=== PATIENT | female | born 1935 | race Caucasian/White ===

== ENCOUNTER 2019-09-15 08:17 | Outpatient (CLI) | payer MEDICARE, OTHER ==
[2019-09-15 16:21] LABS: #Basophils 0.1 thou/uL (0.0-0.2); #Eosinphils 0.7 thou/uL (0.0-0.7); #Lymphocytes 1.7 thou/uL (1.20-3.40); #Monocytes 0.8 thou/uL (0.11-0.59); #Neutrophils 6.2 thou/uL (1.40-6.50); %Basophils 0.6 % (0.0-1.0); %Eosinophils 7.9 % (0.0-10.0); %Lymphocytes 17.7 % (21.0-51.0); %Monocytes 8.2 % (0.0-10.0); %Neutrophils 65.6 % (42.0-75.0); Hemoglobin 12.8 g/dL (12.0-16.0); Mean Corpuscular HGB CONC 32.2 g/dL (32.0-36.0); Mean Corpuscular Hemoglobin 31.2 pg (27.0-31.0); Mean Corpuscular Volume 97.2 fL (78.0-98.0); Mean Platelet Volume 8.1 fL (7.4-10.4); Platelet Count 193 thou/uL (130-400); RBC Distribution Width 13.8 % (11.5-14.5); White Blood Cell (WBC) Count 9.4 thou/uL (4.8-10.8)
[2019-09-15 16:47] LABS: Anion Gap 12 mmol/L (10-20); BUN (Urea Nitrogen) 27 mg/dL (9.8-20.1); Calc. Creatinine Clearance 0 mL/min (70-130); Calcium 8.5 mg/dL (7.8-10.44); Carbon Dioxide 24 mmol/L (23-31); Chloride 105 mmol/L (98-107); Estimated GFR-MDRD 50; Glucose 102 mg/dL (83-110); Potassium 4.3 mmol/L (3.5-5.1); Sodium 137 mmol/L (136-145)
[2019-09-16 14:15] LABS: SARS-CoV-2 MS2 Positive; SARS-CoV-2 N Gene Negative; SARS-CoV-2 S Gene Negative; SARS-CoV-2 by NAA Not Detected (NotDetected); SARS-CoV-2 orf1ab Negative
--- NOTE | 2019-09-16 15:45 | EKG ---
Test Reason : Blood Pressure : / mmHG Vent. Rate : 063 BPM Atrial Rate : 063 BPM P-R Int : 000 ms QRS Dur : 126 ms QT Int : 450 ms P-R-T Axes : 000 -11 146 degrees QTc Int : 460 ms Sinus rhythm with 1st degree A-V block Non-specific intra-ventricular conduction delay Moderate voltage criteria for LVH, may be normal variant Cannot rule out Septal infarct , age undetermined Abnormal ECG Confirmed by LAYLA SOTO ([id number]) on 09/16/2019 3:45:14 PM Referred By: CARINA Confirmed By:LAYLA SOTO
== END 2019-09-15 08:18 | disposition home or self-care (01) ==
LOC: LABBT 08:17
PROVIDERS: ATTEND Orthopaedic Surgery
DX: Z01.818 Encounter for other preprocedural examination (principal); Z11.59 Encounter for screening for other viral diseases; M19.012 Primary osteoarthritis, left shoulder
CPT/HCPCS: 80048; 85025; 93005; U0003; 87635; 93010

== ENCOUNTER 2019-09-15 13:30 | Inpatient (IN) | payer MEDICARE, OTHER ==
[2019-09-15 12:07] VITALS: BMI 29.2
[2019-09-18] MEDS ORDERED: Tranexamic Acid 1,000 MG/10 ML VIAL ONE (06:30)
[2019-09-18] MEDS ORDERED: Sodium Chloride 0.9% 100 ML ONE (06:30)
[2019-09-18] MEDS ORDERED: Vancomycin 1 GM/200 ML BAG ONE (06:30)
[2019-09-18] MEDS ORDERED: Fentanyl 100 MCG/2 ML VIAL ONE (06:55)
[2019-09-18] MEDS ORDERED: Lidocaine 1% (PF) 30 ML VIAL ONE (06:55)
[2019-09-18] MEDS ORDERED: Midazolam HCl 2 mg/2 ml Vial ONE (06:55)
[2019-09-18] MEDS ORDERED: traMADol HCl 50 MG TAB PO PRN ×4 (07:04→08:10)
[2019-09-18] MEDS ORDERED: HYDROcodone/Acetaminophen 7.5/325 mg Tablet PO PRN (07:06)
[2019-09-18] MEDS ORDERED: Acetaminophen/Codeine 30-300mg Tablet PO PRN (07:06)
[2019-09-18] MEDS ORDERED: Acetaminophen 325 MG TAB PO PRN (08:10)
[2019-09-18] MEDS ORDERED: HYDROcodone/Acetaminophen 10/325 mg Tablet PO PRN ×2 (08:10)
[2019-09-18] MEDS ORDERED: Ropivacaine 0.2% 550 ML 550 ML NERVE BLCK SCH (08:10)
[2019-09-18] MEDS ORDERED: Ketorolac Tromethamine 30 MG/ML VIAL IVP PRN (08:10)
[2019-09-18] MEDS ORDERED: Ondansetron PF 4 MG/2 ML Vial IVP PRN (08:10)
[2019-09-18] MEDS ORDERED: Promethazine HCl 25 MG/ML VIAL IM PRN (08:10)
[2019-09-18] MEDS ORDERED: Zolpidem Tartrate 5 MG TAB PO PRN (08:10)
[2019-09-18] MEDS ORDERED: Fentanyl 100 MCG/2 ML VIAL IV PRN (08:12)
[2019-09-18] MEDS ORDERED: Bacitracin 1 PK ONE (09:51)
[2019-09-18] MEDS ORDERED: Ropivacaine 0.2% HCl/PF (40 MG/20 ML VIAL) ONE (10:30)
[2019-09-18] MEDS ORDERED: Lidocaine 1% PF 5 ML VIAL ONE (10:30)
[2019-09-18] MEDS ORDERED: Rocuronium Bromide 10 MG/ML (10ML VIAL) ONE (10:30)
[2019-09-18] MEDS ORDERED: Glycopyrrolate 0.2 MG/ML 5 ML SYRINGE ONE (10:30)
[2019-09-18] MEDS ORDERED: Ropivacaine 0.5% HCl/PF (150 MG/30 ML VIAL) ONE (10:30)
[2019-09-18] MEDS ORDERED: EPHEDRINE 25 MG/5 ML SYRINGE ONE (10:30)
[2019-09-18] MEDS ORDERED: PHENYLEPHRINE-NS 100 MCG/ML 10 ML SYRINGE ONE (10:30)
[2019-09-18] MEDS ORDERED: Dexamethasone 20 MG/5 ML VIAL ONE (10:30)
[2019-09-18] MEDS ORDERED: PROPOFOL 200 MG/20 ML VIAL ONE (10:30)
--- NOTE | 2019-09-18 11:46 | OP ---
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 PROCEDURE PERFORMED: Left reverse total shoulder arthroplasty. LAW ENFORCEMENT INSTRUCTOR: Jaelyn Leal PA-C ANESTHESIA: General via endotracheal tube, augmented with indwelling interscalene peripheral nerve block. COMPONENTS USED: Tornier Aequalis Reversed glenoid base, neutral offset size 29, with a 29-mm neutral offset, 36-mm Glenosphere. Size 3B standard humeral stem with a neutral offset reverse tray, and a 36-mm, 12.5 mm Reversed humeral insert. FINDINGS: End-stage severe degenerative bicompartmental disease, [id number] arthrosis, periarticular osteophyte formation, large serous effusion, hypertrophic synovium, absence and chronic attenuated supraspinatus and infraspinatus tendons. DRAINS: None. SPECIMENS: None. COMPLICATIONS: None. COUNTS: Correct. INDICATIONS FOR SURGERY: Joselito is an 83-year-old female who has had progressive left shoulder pain and problem with overhead lifting and use. She has had long-standing rotator cuff arthropathy and has failed conservative management to alleviate her pain. MRI and plain radiographs had been obtained. PROCEDURE IN DETAIL: After informed consent was obtained in the preoperative holding area, the patient was taken to the operative suite and received preoperative antibiotics. General anesthesia was induced. Once adequate level of anesthesia was obtained, airway was placed and secured. The patient was then positioned appropriately and the operative extremity was prepped and draped in the usual sterile fashion. Prior to incision, a multidisciplinary time-out was called and performed. A standard deltopectoral approach was used, extending from the tip of the coracoid, traveling inferiorly approximately 3 to 6 fingerbreadths and anterior. Subcutaneous layers were divided with Bovie electrocautery. Local bleeding was controlled. The cephalic vein was then encountered and identified and retracted. It was protected for the rest of the case. Andrews retractors were then used to expose the submuscular layer of the deltoid down to the insertion of the pectoralis and this was recessed slightly. Deeper blunt dissection revealed the conjoined tendon, which ran vertically from the tip of the coracoid inferiorly. A submuscular dissection was carried out onto the conjoined tendon, exposing the anterior aspect of the glenohumeral capsule and subscapularis muscular insertion on the humeral head. Careful dissection of the subscapularis originating from the biceps groove and moving medially, we used Bovie electrocautery to peel back the subscapularis tendon meticulously. The biceps tendon was not found in the groove and was no longer present. We placed 3 provisional Ethibond #2 stitches for retraction. The subcapsular joint was then exposed and we reflected the subscapularis tendon inferiorly around the inferior aspect of the humeral head with external rotation, revealing osteophytes and the interval of the neck and head. Blunt retractors were placed both anteriorly and posteriorly and the oscillating saw was then brought in by the payroll human resources assistant to make the provisional neck cut in situ. After removal of this, the humeral neck was then placed back in anatomic position, retracted inferiorly and attention was turned to glenoid preparation. Series of Bankart retractor was placed superiorly to expose the superior aspect of the glenoid and blunt Hohmann's were used to expose the posterior side and inferior aspect. A full circumferential glenoid labrectomy was performed, allowing for full release circumferentially of the humerus from the glenoid, allowing for inferioralization and then placement of the Darrach tractor, which remained throughout the preparation of the glenoid. The sizing guide was placed. Center hole was drilled just inferior to the center of the glenoid. We found good bone with sounding after overdrilling sequentially. The glenoid reamer was then placed to remove the appropriate amount of bone. This was irrigated copiously, finding good subchondral bone for placement of the glenoid base, which was malleted into place. Two nonlocking superior and inferior bone screws were placed as well as 2 locking anterior and posterior screws were placed in the Glenosphere for good solid fixation. The Glenosphere was then brought into the field, placed on the baseplate malleted and then screwed into place for good solid fixation. It was not loose. Attention was then turned to humeral preparation. Humerus was externally rotated and superioralized out of the incision and Hohmann retractors were placed both medially and posteriorly to protect the remnant of subscapularis and supraspinatus tendons. The rotationally guided canal finder was dropped, malleted into place, and left with 30 degrees of internal rotation. This was guided from above by the payroll human resources assistant and malleted and placed by the payroll human resources assistant. The osteotome was then used to remove the calcar bone. It was taken out by the payroll human resources assistant with a rongeur. The rotational guide was removed and sequential broaching was performed by the payroll human resources assistant up to the appropriate size. Once we reached the maximum impaction without subluxation and rotational stability, we chose to go ahead and trial at this time. Trial baseplate was dialed in superiorly and locked and we performed several trials for insert size, taking the shoulder through full range of motion, internal and external rotation, and checking for Shuck and subluxation. After deciding clinically on the appropriate size, the humeral trials were removed and the directly correlating permanent implant was then malleted into place. The fixed bearing polyethylene insert was then malleted into place. Reduction maneuver was performed and the shoulder was again taken through flexion and extension, internal and external rotation, and all planes of motion. No subluxation, lift off, or excessive Shuck was noted. No dislocation was encountered at this time. Happy with the fit, finish, and clinical range of motion. The entire wound was copiously irrigated with normal saline. The payroll human resources assistant then performed primary closure of the subscapularis tendon with combination of #2 Ethibond stitches through transosseous fixation. This was oversewn with a #2 Vicryl with good closure. Deep primary closure was accomplished with the deltoid split with 0 Vicryl in an interrupted single simple stitch fashion. Subcutaneous layer was closed with 2-0 Vicryl and stainless steel cyndie were used to reapproximate the skin. A small sterile dressing was applied and the procedure was terminated without any complications. The airway was removed. The patient was awakened in the operative suite and taken to recovery room in stable condition. Job ID: [id number]
[2019-09-18] MEDS: CEFAZOLIN 2 GM in Premix Bag 1 BAG IVPB SCH ×2 (16:50→21:25)
[2019-09-18] MEDS: Midodrine HCl 5 MG TAB PO SCH ×2 (16:57→20:39)
[2019-09-18] MEDS: Propafenone HCl 150 MG TAB PO SCH ×2 (16:57→20:38)
[2019-09-18] MEDS: Sodium Chloride 0.9% 1,000 ML IV SCH (16:58)
[2019-09-18] MEDS: Aspirin 81 mg Enteric Coated Tablet PO SCH (16:58)
[2019-09-18] MEDS: Famotidine 20 MG TAB PO SCH (16:58)
[2019-09-18] MEDS: Gabapentin 300 MG CAP PO SCH (16:58)
[2019-09-18] MEDS ORDERED: Atorvastatin Calcium 10 MG TAB PO SCH (21:00)
[2019-09-19] MEDS: Sodium Chloride 0.9% 1,000 ML IV SCH (05:59)
[2019-09-19] MEDS: Propafenone HCl 150 MG TAB PO SCH (07:50)
[2019-09-19] MEDS: Aspirin 81 mg Enteric Coated Tablet PO SCH (07:53)
[2019-09-19] MEDS: Midodrine HCl 5 MG TAB PO SCH (07:53)
[2019-09-19] MEDS: Gabapentin 300 MG CAP PO SCH (07:53)
[2019-09-19] MEDS: Famotidine 20 MG TAB PO SCH (07:53)
[2019-09-19 08:28] VITALS: BP 191/90; TEMP 98.1
--- NOTE | 2019-09-19 11:58 | OP ---
DATE OF PROCEDURE: 09/18/2019 PREOPERATIVE DIAGNOSIS: Degenerative arthritis in the left shoulder with rotator cuff insufficiency. POSTOPERATIVE DIAGNOSIS: Degenerative arthritis in the left shoulder with rotator cuff insufficiency. PROCEDURE PERFORMED: Left reverse total shoulder arthroplasty using a [employer] 29-mm baseplate with 36-mm centered sphere, 3B Flex stem, low offset tray, and a +6 poly. CREDIT OR LOANS OFFICER: Jealyn Leal PA-C BLOOD LOSS: About 100. SPECIMEN: None. DRAINS: None. COMPLICATIONS: She did have a little skin tearing on her lower arm, just from holding the arm. Skin is very thin like onion skin. This was replaced and a dressing was placed on it. NARRATIVE REPORT: After appropriate consent was obtained, the patient was taken to the operating room, where general anesthetic was induced. The patient received preoperative antibiotics according to SCIP protocol, placed in a beach chair position. The deltopectoral approach was made. Dissection was carried down to the subscapularis tendon, which was tagged for later repair. There was no functioning rotator cuff. The humeral head was dislocated and cut using a cutting guide, prepared to appropriate stem size. A metaphyseal protector was applied. The glenoid was then exposed circumferentially, removed remains of the biceps tendon. The labrum tissue identified in the center of the glenoid. I drilled the center police pilot hole and then reamed the glenoid to a flat surface, using a one-step reamer to create a trough for the Glenosphere. Appropriate base plate was then inserted with a good press-fit technique and screws were inserted with excellent security of the base plate to bone. When it appears deployed the screw was tightened without difficulty. Trials were performed. The appropriate metaphysis and polyethylene liner chosen. Shoulder was reduced, we confirmed stability. Trials removed, irrigation performed. I drilled two holes through the metaphysis of the proximal humerus, placed cottony Dacron through these holes. The suture went around the actual implant to give extra stability. Implant was impacted into place. Shoulder was reduced. Subscapularis was repaired back to bone using 1 mm cottony Dacron tape. Irrigation was performed. Deltopectoral interval was closed with 0 Vicryl, subcu 2-0 Vicryl and skin was closed with cyndie. Sterile dressings applied. Job ID: [id number]
== END 2019-09-19 12:18 | disposition home or self-care (01) | DRG 483 ==
LOC: SURG A 09-18 06:17 → SJJU 09-18 10:51
PROVIDERS: ADMIT Orthopaedic Surgery; ATTEND Orthopaedic Surgery
PROC: 0RRK00Z Replacement of Left Shoulder Joint with Reverse Ball and Socket Synthetic Substitute, Open Approach (ICD-10-PCS; principal; 2019-09-18)
DX: M19.012 Primary osteoarthritis, left shoulder (principal); M75.102 Unspecified rotator cuff tear or rupture of left shoulder, not specified as traumatic; M25.412 Effusion, left shoulder; Z96.653 Presence of artificial knee joint, bilateral; Z90.49 Acquired absence of other specified parts of digestive tract; Z90.710 Acquired absence of both cervix and uterus
CPT/HCPCS: 80048; 85025; 87635; 93005; A4306; C1713; C1776; J0690; J1100; J2001; J2250; J2704; J2795; J3010; J3370; J3490; U0003

== ENCOUNTER 2019-11-10 07:47 | Outpatient (CLI) | payer MEDICARE, OTHER ==
[2019-11-10 14:32] LABS: #Basophils 0.1 thou/uL (0.0-0.2); #Eosinphils 0.8 thou/uL (0.0-0.7); #Lymphocytes 1.7 thou/uL (1.20-3.40); #Monocytes 0.8 thou/uL (0.11-0.59); #Neutrophils 6.4 thou/uL (1.40-6.50); %Basophils 0.7 % (0.0-1.0); %Eosinophils 8.7 % (0.0-10.0); %Lymphocytes 17.5 % (21.0-51.0); %Monocytes 7.8 % (0.0-10.0); %Neutrophils 65.4 % (42.0-75.0); Hemoglobin 13.6 g/dL (12.0-16.0); Mean Corpuscular HGB CONC 31.1 g/dL (32.0-36.0); Mean Corpuscular Hemoglobin 30.5 pg (27.0-31.0); Mean Corpuscular Volume 98.1 fL (78.0-98.0); Mean Platelet Volume 7.8 fL (7.4-10.4); Platelet Count 281 thou/uL (130-400); RBC Distribution Width 13.5 % (11.5-14.5); Red Blood Cell (RBC) Count 4.47 mill/uL (4.20-5.40); White Blood Cell (WBC) Count 9.8 thou/uL (4.8-10.8)
[2019-11-10 15:00] LABS: Anion Gap 14 mmol/L (10-20); BUN (Urea Nitrogen) 18 mg/dL (9.8-20.1); Calc. Creatinine Clearance 0 mL/min (70-130); Calcium 8.9 mg/dL (7.8-10.44); Carbon Dioxide 26 mmol/L (23-31); Chloride 106 mmol/L (98-107); Estimated GFR-MDRD 43; Glucose 108 mg/dL (83-110); Potassium 4.4 mmol/L (3.5-5.1); Sodium 142 mmol/L (136-145)
[2019-11-11 14:55] LABS: SARS-CoV-2 MS2 Positive; SARS-CoV-2 N Gene Negative; SARS-CoV-2 S Gene Negative; SARS-CoV-2 by NAA Not Detected (NotDetected); SARS-CoV-2 orf1ab Negative
== END 2019-11-10 07:48 | disposition home or self-care (01) ==
LOC: LABBT 07:47
PROVIDERS: ATTEND Orthopaedic Surgery
DX: Z01.812 Encounter for preprocedural laboratory examination (principal); Z20.828 Contact with and (suspected) exposure to other viral communicable diseases; M19.011 Primary osteoarthritis, right shoulder
CPT/HCPCS: 80048; 85025; U0003; 87635

== ENCOUNTER 2019-11-10 11:15 | Inpatient (IN) | payer MEDICARE, OTHER ==
[2019-11-11 15:54] VITALS: BMI 28.3
[2019-11-13] MEDS ORDERED: Sodium Chloride 0.9% 100 ML ONE (06:42)
[2019-11-13] MEDS ORDERED: Tranexamic Acid 1,000 MG/10 ML VIAL ONE (06:42)
[2019-11-13] MEDS ORDERED: Vancomycin 1 GM/200 ML BAG ONE (06:42)
[2019-11-13] MEDS ORDERED: Midazolam HCl 2 mg/2 ml Vial ONE (06:44)
[2019-11-13] MEDS ORDERED: Fentanyl 100 MCG/2 ML VIAL ONE (06:44)
[2019-11-13] MEDS ORDERED: traMADol HCl 50 MG TAB PO PRN ×4 (07:12→07:30)
[2019-11-13] MEDS ORDERED: Acetaminophen/Codeine 30-300mg Tablet PO PRN (07:15)
[2019-11-13] MEDS ORDERED: Fentanyl 100 MCG/2 ML VIAL SLOW IVP PRN (07:21)
[2019-11-13] MEDS ORDERED: Promethazine HCl 25 MG/ML VIAL IM PRN (07:30)
[2019-11-13] MEDS ORDERED: HYDROcodone/Acetaminophen 5/325 mg Tablet PO PRN ×2 (07:30)
[2019-11-13] MEDS ORDERED: Zolpidem Tartrate 5 MG TAB PO PRN (07:30)
[2019-11-13] MEDS ORDERED: Ondansetron PF 4 MG/2 ML Vial IVP PRN (07:30)
[2019-11-13] MEDS ORDERED: Ropivacaine 0.2% 550 ML 550 ML NERVE BLCK SCH (07:30)
[2019-11-13] MEDS ORDERED: Aspirin 81 mg Enteric Coated Tablet PO SCH ×2 (09:00→21:00)
[2019-11-13] MEDS ORDERED: PROPAFENONE 225 MG PO SCH (09:00)
[2019-11-13] MEDS ORDERED: SUGAMMADEX SODIUM 200 MG/2 ML VIAL ONE (09:22)
[2019-11-13] MEDS ORDERED: Ondansetron HCl/PF 4 MG/2 ML Vial IVP PRN (09:32)
[2019-11-13] MEDS ORDERED: Glycopyrrolate 0.2 MG/ML 5 ML SYRINGE ONE (09:57)
[2019-11-13] MEDS ORDERED: Dexamethasone 20 MG/5 ML VIAL ONE (09:57)
[2019-11-13] MEDS ORDERED: PROPOFOL 200 MG/20 ML VIAL ONE (09:57)
[2019-11-13] MEDS ORDERED: Lidocaine 1% PF 5 ML VIAL ONE (09:57)
[2019-11-13] MEDS ORDERED: EPHEDRINE 25 MG/5 ML SYRINGE ONE (09:57)
[2019-11-13] MEDS ORDERED: Ropivacaine 0.2% HCl/PF (40 MG/20 ML VIAL) ONE (09:57)
[2019-11-13] MEDS ORDERED: Ondansetron PF 4 MG/2 ML Vial ONE (09:57)
[2019-11-13] MEDS ORDERED: Rocuronium Bromide 10 MG/ML (10ML VIAL) ONE (09:57)
[2019-11-13] MEDS ORDERED: Ketorolac Tromethamine 30 MG/ML VIAL ONE (09:57)
[2019-11-13] MEDS ORDERED: Ropivacaine 0.5% HCl/PF (150 MG/30 ML VIAL) ONE (09:57)
[2019-11-13] MEDS ORDERED: PHENYLEPHRINE-NS 100 MCG/ML 10 ML SYRINGE ONE (09:57)
[2019-11-13] MEDS: Midodrine HCl 5 MG TAB PO SCH ×2 (15:44→21:30)
[2019-11-13] MEDS: CEFAZOLIN 2 GM in Premix Bag 1 BAG IVPB SCH ×2 (15:47→23:28)
[2019-11-13] MEDS: Sodium Chloride 0.9% 1,000 ML IV SCH ×2 (15:47→23:29)
[2019-11-13] MEDS: Famotidine 20 MG TAB PO SCH (16:39)
[2019-11-13] MEDS ORDERED: Vancomycin 1 GM in Premix Bag 1 BAG IVPB SCH (20:00)
[2019-11-13] MEDS ORDERED: Atorvastatin Calcium 10 MG TAB PO SCH (21:00)
[2019-11-13] MEDS ORDERED: Gabapentin 300 MG CAP PO SCH (21:00)
--- NOTE | 2019-11-14 08:18 | OP ---
DATE OF PROCEDURE: 11/13/2019 PROCEDURE: Right reverse total shoulder arthroplasty and biceps tenodesis. PREOPERATIVE DIAGNOSIS: 1. Rotator cuff arthropathy, right shoulder. 2. Biceps tendinitis, right shoulder. POSTOPERATIVE DIAGNOSIS: 1. Rotator cuff arthropathy, right shoulder. 2. Biceps tendinitis, right shoulder. DIRECTOR MEDIA: Pedro Polk PA-C. IMPLANTS USED: Tornier 29-mm baseplate, 36 mm 10-degree tilted lateralized head, 3B stem, low offset tray, and 36 +6 poly. NARRATIVE REPORT: After appropriate consent was obtained, the patient was taken to the operating room where general anesthesia was induced. The patient was placed in a beach chair position. Right arm was prepped and draped in the usual sterile fashion. Oblique incision was made in the deltopectoral interval. Cephalic vein was identified and preserved. Dissection was carried down to the conjoint tendon which was retracted medially. The subscapularis was taken down. The biceps tendon was in poor condition. It was taken down off the superior glenoid tubercle and tenodesed to the pectoralis tendon. Excess tendon was removed. The shoulder was then easily dislocated. I opened the humerus with a T handle and then cut a 20 mm retroversion superior cut. The subscapularis had been previously tagged. I used a subscapularis to follow this down to the anterior glenoid and a Bankart retractor was placed anteriorly, and drill was placed posteriorly. I drilled a center hole in the glenoid and reamed with a 1-step reamer. Irrigation was performed. The base plate was deployed without difficulty. Screws were inserted in the usual technique with good compression and fixation. Glenosphere was deployed without difficulty and the screw was tightened. Attention was turned back to the humerus which was opened with a T handle, and after using the acetabular reamer, I then also used a metaphyseal reamer. The appropriate size stem was trialed and polyethylene was trialed until the implants were determined as above. I did drill holes through the humerus, and a cottony Dacron suture was placed around the prosthesis through bone to facilitate repair of the subscapularis. Irrigation was performed. Permanent implants were placed. Shoulder was reduced. The subscapularis was repaired back to bone using the cottony Dacron suture. Irrigation performed again. The deltopectoral interval was tacked shut with 0 Vicryl, subcutaneous tissue was closed with 2-0 Vicryl, skin was closed with cyndie, and sterile dressing was applied. ADDENDUM: The grooming assistant, co-surgeon, was present through the entire procedure and was responsible for exposure, tissue retraction, and any necessary limb or tissue manipulation required to obtain necessary reduction or hardware placement. The grooming assistant, co-surgeon, also provided bleeding control, tissue closure, and suturing in conjunction with the primary surgeon. Job ID: [id number]
[2019-11-14] MEDS: Famotidine 20 MG TAB PO SCH (08:57)
[2019-11-14] MEDS ORDERED: FLU VACC QS2020-21(65YR UP)/PF 240 MCG/0.7 ML SYRINGE IM ONE (09:00)
[2019-11-14] MEDS: Midodrine HCl 5 MG TAB PO SCH (09:04)
[2019-11-14 11:28] VITALS: BP 142/73; TEMP 97.9
== END 2019-11-14 11:20 | disposition home or self-care (01) | DRG 483 ==
LOC: SURG A 11-13 06:19 → SURG B 11-13 10:25
PROVIDERS: ADMIT Orthopaedic Surgery; ATTEND Orthopaedic Surgery
PROC: 0RRJ00Z Replacement of Right Shoulder Joint with Reverse Ball and Socket Synthetic Substitute, Open Approach (ICD-10-PCS; principal; 2019-11-13)
DX: M19.011 Primary osteoarthritis, right shoulder (principal); M75.21 Bicipital tendinitis, right shoulder; Z90.49 Acquired absence of other specified parts of digestive tract; Z95.5 Presence of coronary angioplasty implant and graft
CPT/HCPCS: 80048; 85025; 87635; 90471; 90662; 90732; A4306; C1713; C1776; G0008; G0009; J0690; J1100; J1885; J2250; J2405; J2704; J2795; J3010; J3370; J3490; U0003